=== PATIENT | male | born 2000 | race Caucasian/White ===

== ENCOUNTER 2024-06-16 09:24 | Emergency (ER) | payer SELFPAY ==
--- OUTSIDE RECORDS SUMMARY | 2024-06-16 09:27 | XMS_ITS | Clinical Summary ---
Author Organization [facility] [employer] Address [address] [place] [address] Care Team Providers Care Uniform Designer Name Role Phone Unavailable Primary Care Provider Unavailabl e Source Comments [facility] [employer],non-owned Affiliates and Associated Physician Practices is amultiple site organization consisting of ambulatory clinics and hospital sitesin [place], [place], [place] and [place]. This disclosure is being madepursuant to the Care Everywhere program and may not contain all information available regarding this patient. Last updated 18.[facility] [employer] Social History Tobacco Use Types Packs/Day Years Used Date Smoking Tobacco: Never Assessed Sex and Gender Information Value Date Recorded Sex Assigned at Not on file Gender Identity Not on file Sexual Orientation Not on file Plan of Treatment Health Maintenance Due Date Last Done Comments HIV SCREENING 11/04/2014 HPV VACCINE (1 - Male 3-dose series) 11/04/2014 HEPATITIS C SCREENING 10/31/2017 DTAP/TDAP/TD VACCINES (1 - Tdap) 11/04/2018 HEPATITIS B VACCINE (1 of 3 - 19+ 3-dose series) 11/04/2018 COVID-19 VACCINE (1 - 2023-2 5 season) 2024 INFLUENZA VACCINE (#1) 2024 DEPRESSION SCREENING 05/08/2024 ZOSTER VACCINE (1 of 2) 11/04/2049 HIB VACCINE Aged Out No longer eligi ble based on patient's age to complete this topic MENINGOCOCCAL (Group B) VACCINE Aged Out No longer eligible based on patient's age to complete this topic MENINGOCOCCAL VACCINE Aged Out No jaime mango eligible based on patient's age to complete this topic PNEUMOCOCCAL VACCINE Aged Out No long er eligible based on patient's age to complete this topic
--- OUTSIDE RECORDS SUMMARY | 2024-06-16 09:27 | XMS_ITS | Referral Summary ---
Author Organization [facility] Address [address] [place] [address] Care Team Providers Care Field Support Technician Name Role Phone Unavailable Primary Care Provider Unavailabl e Source Comments [facility],non-owned Affiliates and Associated Physician Practices is amultiple site organization consisting of ambulatory clinics and hospital sitesin [place], [place], [place] and [place]. This disclosure is being madepursuant to the Care Everywhere program and may not contain all information available regarding this patient. Last updated 18.[facility] [employer] Social History Tobacco Use Types Packs/Day Years Used Date Smoking Tobacco: Never Assessed Sex and Gender Information Value Date Recorded Sex Assigned at Not on file Gender Identity Not on file Sexual Orientation Not on file Plan of Treatment Not on file
--- OUTSIDE RECORDS SUMMARY | 2024-06-16 09:27 | XMS_ITS | Encounter Summary ---
Author Organization [facility] Address [facility] [place] [address] Care Team Providers Care Upholstery Trimmer Name Role Phone Hollie Foley [facility] Primary Care Provider + Jodi Gleason MD Unavailable Unavailabl e Encounter Details Date Type Department Care Team (Late st Contact Info) Description 10/13/2018 Abstract SFL CONVERSION [address] [place] [address] , Generic Conversion, Social History Tobacco Use Types Packs/Day Years Used Date Smoking Tobacco: Never Assessed Sex and Gender Information Value Date Recorded Sex Assigned at Not on file 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
--- OUTSIDE RECORDS SUMMARY | 2024-06-16 09:27 | XMS_ITS | Encounter Summary ---
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
--- OUTSIDE RECORDS SUMMARY | 2024-06-16 09:27 | XMS_ITS | Patient Health Summary ---
Author Organization [facility] Address [address] [place] [address] Care Team Providers Care Electrogalvanizing Machine Operator Name Role Phone Unavailable Primary Care Provider Unavailabl e Note from [facility],non-owned Affiliates and Associated Physician Practices is amultiple site organization consisting of ambulatory clinics and hospital sitesin [place], [place], [place] and [place]. This disclosure is being madepursuant to the Care Everywhere program and may not contain all information available regarding this patient. Last updated 18.[facility] [employer] Social History Tobacco Use Types Packs/Day Years Used Date Smoking Tobacco: Never Assessed Sex and Gender Information Value Date Recorded Sex Assigned at Not on file Gender Identity Not on file Sexual Orientation Not on file Procedures * GROSS + MICRO EXAM(Performed 1999) Results * GROSS + MICRO EXAM (1999 11:00 AM CDT) Result CASE NUMBER [id number] [facility] PATH REPORT Comment: ORDERING PHYSICIAN BIPIN MANCUSO SPECIMEN TYPE Hernia Sac-R. Inguinal CLINICAL HISTORY The patient is a 3-day-old boy with an imperforate anus, right inguinal hernia and phimosis. GROSS DESCRIPTION The specimens are received fresh in three containers. In the first container labeled A1, right inguinal hernia sac are two membranous portions of glistening, pink-goodwin, soft tissue with an aggregate measurement of 2.5 x 1.5 x 0.3 cm. The specimens are submitted in toto as A1 . In the next container labeled B1, foreskin , for gross examination only, are two irregular, roughly rectangular shaped portions of wrinkled, pink-goodwin skin and subcutaneous tissue with an aggregate measurement of 1.5 x 1 x 0.3 cm. No sections are taken. In the next container labeled C1, anal mucosa are two irregular shaped fragments of glistening, dark red soft tissue each measuring 0.7 x 0.2 x 0.1 cm. Multiple black silk ties are inserted through both specimens. The specimens are entirely submitted in cassette C1 . (CT/akn) MICROSCOPIC DESCRIPTION (A1 1 H/E C1 1 H/E) Sections of the C1, anal mucosa show stratified squamous epithelium and transitional epithelium. The underlying connective tissue contains smooth muscle and congested vessels within the hemorrhoidal plexus. DIAGNOSIS DIAGNOSIS A1) HERNIA SAC-RIGHT INGUINAL - MESOTHELIAL LINED FIBROUS CONNECTIVE TISSUE CONSISTENT WITH HERNIA SAC. B1) FORESKIN (GROSS ONLY). C1) ANAL MUCOSA, EXCISION - SQUAMOUS AND TRANSITIONAL EPITHELIUM CONSISTENT WITH IMPERFORATE ANUS. Building Insulation Supervisor Karen Azar RESIDENT IN PATHOLOG Wilian Mesa M.D. PATHOLOGIST Sixto Oswald M.D. ELECTRONICALLY CHI Sixto Oswald MISCELLANEOUS SAMPLES / Unknown 1999 11:00 AM CDT 1999 2:20 PM CDT Historical Provider LAB - PATHOLOGY/C YTOLOGY ORDERABLES [facility] PATH REPORT
--- OUTSIDE RECORDS SUMMARY | 2024-06-16 09:27 | XMS_ITS | Clinical Summary ---
Author Organization [facility] Address [facility] [place] [address] Care Team Providers Care Impression Printer Name Role Phone Hollie Foley [facility] Primary Care Provider + Jodi Gleason MD Unavailable Unavailabl e Allergies No known active allergies Medications busPIRone (BUSPAR) 15 MG tablet Take 30 mg by mouth 2 (two) times daily. Active prazosin (MINIPRESS) 2 MG capsule Take 4 mg by mouth nightly at bedtime. Active chlorthalidone (HYGROTEN) 25 MG tablet Take 12.5 mg by mouth daily. Active lamoTRIgine (LAMICTAL) 100 MG tablet Take 100 mg by mouth nightly at bedtime. 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 Gender Identity Not on file Sexual Orientation Not on file Last Filed Vital Signs Vital Sign Reading Time Taken Comments Blood Pressure 109/88 08/04/2019 8:00 PM CDT Pulse 77 08/04/2019 8:00 PM CDT Temperature 36.4 C (97.6 F) 08/04/2019 6:14 PM CDT Respiratory Rate 16 08/04/2019 8:00 PM CDT Oxygen Saturation 97% 08/04/2019 8:00 PM CDT Inhaled Oxygen Concentration - - Weight 83.9 kg (185 lb) 08/04/2019 6:14 PM CDT Height 185.4 cm (6' 1 ) 08/04/2019 6:14 PM CDT Body Mass Index 24.41 08/04/2019 6:14 PM CDT Plan of Treatment Health Maintenance Due Date Last Done Comments Annual Physical 11/04/2002 Pneumococcal Vaccine: Pediatrics (0 to 5 Years) and At-Risk Patients (6 to 64 Years) (1 of 2 - PCV) 11/04/2005 HPV Vaccines (1 - Male 3-dos e series) 11/04/2014 Hepatitis C 11/04/2017 DTaP, Tdap and Td Vaccines ( 1 - Tdap) 11/04/2018 Hepatitis B Vaccines (1 of 3 - 19+ 3-dose series) 11/04/2018 COVID-19 Vaccine (4 - 2023-2 5 season) 2024 04/13/2021, 08/03/2020, 07/28/2020 Influenza Adult (#1) 2024 Meningococcal B Vaccine Aged Out No l onger eligible based on patient's age to complete this topic Meningococcal Vaccine Aged Out No jaime mango eligible based on patient's age to complete this topic RSV Immunizations Under 20 Months Aged Out No longer eligible b ased on patient's age to complete this topic Insurance [facility] Advance Directives Documents on File Type Date Recorded Patient Emergency Response Technician Expl anation Guardianship - Temporary 10/11/2018 12:00 AM GUARDIANSHIP [employer] Guardianship - Temporary 08/29/2017 12:00 AM GUARDIAN[employer] Guardianship - Temporary 10/16/2015 12:00 AM GUARDIANSHIP [employer] Guardianship - Temporary 07/22/2015 12:00 AM GUARDIAN[employer]IP [employer] Care Teams Impression Printer Relationship Specialty Start Date End Date Hollie Foley, [facility] [address] [place] [address] PCP - General FAMILY PRACTICE 05/27/22 Jodi Gleason MD [address] [place] [address] [place] Support Specialist CARDIOVASCULAR DISEASE 05/27/22
--- NOTE | 2024-06-16 09:30 | ED.GENADULT ---
HPI - General Adult General Stated complaint: ring stuck on finger History of Present Illness HPI narrative: Lawrence presented to the Ed with a ring suck on his right 4th digit since last night. He tried multiple attempts to remove but was unsuccessful. Related Data Home Medications ?Medication ?Instructions ?Recorded ?Confirmed ?Last Taken ?Type No Home Medications 06/16/24 06/16/24 Unknown History Allergies Allergy/AdvReac Type Severity Reaction Status Date / Time No Known Allergies Allergy Verified 06/16/24 09:56 Review of Systems Review of Systems: All systems reviewed & are unremarkable except as noted in HPI and below Exam Const: General: cooperative, healthy appearing, comfortable, no acute distress, well developed, alert, awake and Physically active Orientation/consciousness: oriented to person, oriented to place and oriented to time HENMT: Head: normal to inspection, normocephalic and atraumatic Ears: hearing grossly normal bilaterally and external ears normal Face/Nose/Sinus: Normal external nose present Eyes: General: appearance normal, both eyes and all related structures Periorbital: periorbital findings normal Sclera: sclerae normal Pupils: Equal, round and reactive pupils present Neck: Neck: normal visual inspection Chest: Chest palpation & inspection: normal inspection of the chest Resp: Effort & Inspection: normal respiratory effort, able to speak in complete sentences and no respiratory distress Cardio: Jugular venous distension: no JVD Skin: General skin exam: normal color and no rashes or lesions noted Neuro: General: oriented to person, oriented to place and oriented to time Cranial nerves: Yes Equal, round and reactive pupils present Extrem: General: normal to inspection Other: ring stuck on right 4th finger Course Course Emergency Course: Anesthesia obtained with a digital block and the ring was cut off. upon removing the ring he had sensation, full motor control and rapid ap refill. Discharge Plan Discharge Clinical Impression: Crushing injury of right ring finger, initial encounter Patient Disposition: Home, Self-Care Condition: Stable Instructions: Antibiotic Form Patient Language: Nepali Follow-up/Referrals: Bruce Esquivel M.D. [Primary Care Provider] -
[2024-06-16] MEDS: LIDOCAINE 1% LOCAL INJ 10 ML VIAL 5 ML INFILTRATE (09:48)
[2024-06-16] MEDS: NEOMYCIN/POLYMYXIN/BACITRACIN OINTMENT 15 GM TUBE 1 APPLIC TOPICAL (09:57)
[2024-06-16 10:00] VITALS: BP 135/87; PULSE 87; RESP 20; TEMP 36.8; O2SAT 98
--- OUTSIDE RECORDS SUMMARY | 2024-06-16 10:07 | XMS_ITS | Clinical Summary ---
Author Organization [facility] Address [facility] [place] [address] Care Team Providers Care Material Combiner Name Role Phone Hollie Foley 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 [address] [place] [address] PCP - General FAMILY PRACTICE 05/27/22 Jodi Gleason MD [address] [place] [address] [place] Medical Dosimetrist CARDIOVASCULAR DISEASE 05/27/22
--- OUTSIDE RECORDS SUMMARY | 2024-06-16 10:07 | XMS_ITS | Clinical Summary ---
Author Organization [facility] [employer] Address [address] [place] [address] Care Team Providers Care Mail Examiner Name Role Phone Unavailable Primary Care Provider Unavailabl e Source Comments [facility] [employer],non-owned Affiliates and Associated Physician Practices is amultiple site organization consisting of ambulatory clinics and hospital sitesin [place], [place], [place] and [place]. This disclosure is being madepursuant to the Care Everywhere program and may not contain all information available regarding this patient. Last updated 18.[facility] [employer] Social History Tobacco Use Types Packs/Day Years [...]
--- OUTSIDE RECORDS SUMMARY | 2024-06-16 10:07 | XMS_ITS | Encounter Summary ---
Author Organization [facility] Address [facility] [place] [address] Care Team Providers Care Wire Turning Machine Operator Name Role Phone Hollie Foley [facility] Primary Care Provider + Jodi Gleason MD Unavailable Unavailabl e Encounter Details Date Type Department Care Team (Late st Contact Info) Description 07/22/2017 Abstract SJS CONVERSION [address] [place] [address] , Generic ConversionMD Social History Tobacco Use Types Packs/Day Years Used Date Smoking Tobacco: Never Assessed Sex and Gender Information Value Date Recorded Sex Assigned at Not on file 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
--- OUTSIDE RECORDS SUMMARY | 2024-06-16 10:07 | XMS_ITS | Patient Health Summary ---
Author Organization [facility] Address [address] [facility] [place] [address] Care Team Providers Care Hydrogen Power Plant Engineer Name Role Phone Unavailable Primary Care Provider Unavailabl e Note from [facility],non-owned Affiliates and Associated Physician Practices is amultiple site organization consisting of ambulatory clinics and hospital sitesin [place], [place], [place] and [place]. This disclosure is being madepursuant to the Care Everywhere program and may not contain all information available regarding this patient. Last updated 18.[facility] [employer] Social History Tobacco Use Types Packs/Day Years Used Date Smoking Tobacco: Never Assessed Sex and Gender Information Value Date Recorded Sex Assigned at Not on file Gender Identity Not on file Sexual Orientation Not on file Procedures * GROSS + MICRO EXAM(Performed 1999) Results * GROSS + MICRO EXAM (1999 11:00 AM CDT) Result CASE NUMBER [id number] [facility] PATH REPORT Comment: ORDERING PHYSICIAN BIPIN [...] AND TRANSITIONAL EPITHELIUM CONSISTENT WITH IMPERFORATE ANUS. Flexible Shaft Winder Karen Azar RESIDENT IN PATHOLOG Wilian Mesa M.D. PATHOLOGIST Sixto Oswald M.D. ELECTRONICALLY [facility] Sixto Oswald MISCELLANEOUS SAMPLES / Unknown 1999 11:00 AM CDT 1999 2:20 PM CDT Historical Provider LAB - PATHOLOGY/C YTOLOGY ORDERABLES [facility] PATH REPORT
--- OUTSIDE RECORDS SUMMARY | 2024-06-16 10:07 | XMS_ITS | Referral Summary ---
Author Organization [facility] Address [address] [place] [address] Care Team Providers Care Spring Machine Operator Name Role Phone Unavailable Primary Care Provider Unavailabl e Source Comments [facility],non-owned Affiliates and Associated Physician Practices is amultiple site organization consisting of ambulatory clinics and hospital sitesin [place], [place] and [place]. This disclosure is being madepursuant to the Care Everywhere program and may not contain all information available regarding this patient. Last updated 18.[facility] [employer] Social History Tobacco Use Types Packs/Day Years Used Date Smoking Tobacco: Never Assessed Sex and Gender Information Value Date Recorded Sex Assigned at Not on file Gender Identity Not on file Sexual Orientation Not on file Plan of Treatment Not on file
--- OUTSIDE RECORDS SUMMARY | 2024-06-16 10:07 | XMS_ITS | Encounter Summary ---
Author Organization [facility] Address [facility] [place] [address] Care Team Providers Care Medical Support Specialist Name Role Phone Hollie Foley 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 [address] [place] [address] PCP - General FAMILY PRACTICE 05/27/22 Jodi Gleason MD [address] [place] [address] [place] Spinning Supervisor CARDIOVASCULAR DISEASE 05/27/22 documented as of this encounter
== END 2024-06-16 10:00 | disposition home or self-care (01) ==
LOC: CHSED 10:05
PROVIDERS: Emergency Provider Family Medicine; PCP Family Medicine
DX: S60.444A External constriction of right ring finger, initial encounter (principal); W49.04XA Ring or other jewelry causing external constriction, initial encounter
CPT/HCPCS: 99282; J2003